=== PATIENT | male | born 1995 | race Hispanic/Latino ===

== ENCOUNTER 2019-03-05 09:48 | Emergency (ER) | payer SELFPAY ==
[2019-03-05 10:40] VITALS: BP 132/88
== END 2019-03-05 10:40 | disposition home or self-care (01) | DRG 603 ==
LOC: ED 09:48
PROC: 0H98XZZ Drainage of Buttock Skin, External Approach (ICD-10-PCS; principal; 2019-03-05)
DX: L02.31 Cutaneous abscess of buttock (principal)

== ENCOUNTER 2019-03-07 08:55 | Emergency (ER) | payer OTHER ==
[2019-03-07 09:21] VITALS: BP 140/68
== END 2019-03-07 09:21 | disposition home or self-care (01) | DRG 951 ==
LOC: ED 08:55
DX: Z48.01 Encounter for change or removal of surgical wound dressing (principal)

== ENCOUNTER 2019-03-09 12:39 | Emergency (ER) | payer OTHER ==
[~2019-03-09] VITALS: Ht 154.9 cm; Wt 86.4 kg
[2019-03-09] MEDS ORDERED: KEFLEX500 MG PO (13:11)
[2019-03-09 13:15] VITALS: BP 121/76
== END 2019-03-09 13:15 | disposition home or self-care (01) | DRG 951 ==
LOC: ED 12:39
DX: Z48.01 Encounter for change or removal of surgical wound dressing (principal)

== ENCOUNTER 2019-03-11 10:55 | Emergency (ER) | payer OTHER ==
[~2019-03-11] VITALS: Ht 154.9 cm; Wt 86.4 kg
[~2019-03-11 10:55] MED LIST: KEFLEX500 MG PO
[2019-03-11 11:30] VITALS: BP 142/88
== END 2019-03-11 11:30 | disposition home or self-care (01) | DRG 951 ==
LOC: ED 10:55
DX: Z48.01 Encounter for change or removal of surgical wound dressing (principal)

== ENCOUNTER 2019-03-13 09:35 | Emergency (ER) | payer OTHER ==
[~2019-03-13] VITALS: Ht 154.9 cm; Wt 92.0 kg
[2019-03-13 10:42] VITALS: BP 156/95
== END 2019-03-13 10:48 | disposition home or self-care (01) | DRG 951 ==
LOC: ED 09:35
DX: Z48.01 Encounter for change or removal of surgical wound dressing (principal)

== ENCOUNTER 2019-03-15 09:43 | Emergency (ER) | payer OTHER ==
[~2019-03-15] VITALS: Ht 154.9 cm; Wt 83.4 kg
[2019-03-15 10:41] VITALS: BP 150/96
== END 2019-03-15 10:42 | disposition home or self-care (01) | DRG 951 ==
LOC: ED 09:43
DX: Z48.01 Encounter for change or removal of surgical wound dressing (principal)

== ENCOUNTER 2019-03-24 11:19 | Emergency (ER) | payer OTHER ==
[~2019-03-24] VITALS: Ht 154.9 cm; Wt 86.4 kg
[2019-03-24 12:05] VITALS: BP 142/83
== END 2019-03-24 12:05 | disposition home or self-care (01) | DRG 603 ==
LOC: ED 11:19
DX: L05.01 Pilonidal cyst with abscess (principal)